=== PATIENT | male | born 1965 | race Caucasian/White ===

== ENCOUNTER 2021-09-30 01:44 | Emergency (ER) | payer SELFPAY ==
[~2021-09-30] VITALS: Ht 182.9 cm; Wt 86.4 kg
[2021-09-30 05:55] VITALS: BP 188/122
== END 2021-09-30 09:46 | disposition left against medical advice (07) ==
LOC: ER 01:47
DX: R04.0 Epistaxis (principal); Z53.21 Procedure and treatment not carried out due to patient leaving prior to being seen by health care provider